=== PATIENT | female | born 1960 | race Caucasian/White ===

== ENCOUNTER → 2016-07-05 | Day surgery (SDC) | payer OTHER ==
[~2016-07-05] MED LIST: FLEXERIL10 MG PO; FLONASE ALLER15.8 ML; LEXAPRO 10MG TA10 MG PO; NAPROSYN500 MG PO; NEXIUM40 MG PO; PHENERGAN12.5 M1 PO; PLAQUENIL200 MG PO; SYNTHROID100 MCG PO; SYNTHROID150 MCG PO; WELLBUTRIN XL150 MG PO
== END | disposition home or self-care (01) ==
LOC: FAS 07:09
DX: M75.121 Complete rotator cuff tear or rupture of right shoulder, not specified as traumatic (principal); M75.41 Impingement syndrome of right shoulder; M19.011 Primary osteoarthritis, right shoulder; S43.401A Unspecified sprain of right shoulder joint, initial encounter; M32.9 Systemic lupus erythematosus, unspecified; E03.9 Hypothyroidism, unspecified; E78.00 Pure hypercholesterolemia, unspecified; M19.90 Unspecified osteoarthritis, unspecified site; F32.9 Major depressive disorder, single episode, unspecified; F41.9 Anxiety disorder, unspecified; G47.30 Sleep apnea, unspecified; Z99.89 Dependence on other enabling machines and devices; Z87.891 Personal history of nicotine dependence; Z90.49 Acquired absence of other specified parts of digestive tract; Z90.710 Acquired absence of both cervix and uterus; Z98.890 Other specified postprocedural states; Z79.899 Other long term (current) drug therapy
CPT/HCPCS: C1713; J0690; J1170; J2405; J2704; J2795; J3010